=== PATIENT | male | born 1955 | race Caucasian/White ===

== ENCOUNTER → 2018-03-07 | Outpatient (CLI) | payer OTHER ==
[~2018-03-07] MED LIST: ALEVE220 MG PO; MEDROLDOSEPACK PO; METHOCARBAMOL500 M1 PO; NEURONTIN 300300 M1 PO; TRAMADOL 50 MG50 MG PO; [UNRECOGNIZED DRUG - OTHER]
== END ==
LOC: CAT 09:05
DX: Z13.6 Encounter for screening for cardiovascular disorders (principal); E78.00 Pure hypercholesterolemia, unspecified; Z82.49 Family history of ischemic heart disease and other diseases of the circulatory system

== ENCOUNTER → 2018-03-14 | Outpatient (CLI) | payer OTHER | LOC: CAT 08:34 | DX: J32.0 Chronic maxillary sinusitis (principal) ==